=== PATIENT | female | born 1965 | race Caucasian/White ===

== ENCOUNTER 2018-11-24 20:49 | Emergency (ER) | payer BC ==
[2018-11-24] MEDS ORDERED: OMEGA 3-6-9 11200 MG PO (21:29)
[2018-11-24] MEDS ORDERED: VITAMIN D1000 IU PO (21:29)
[2018-11-24] MEDS ORDERED: B COMPLEX1 EACH PO (21:30)
[2018-11-24 21:58] VITALS: BP 145/88
== END 2018-11-24 21:58 | disposition home or self-care (01) ==
LOC: ED 20:49
DX: B34.9 Viral infection, unspecified (principal); J32.9 Chronic sinusitis, unspecified

== ENCOUNTER → 2018-11-28 | Outpatient (CLI) | payer BC ==
[2018-11-24 21:58] VITALS: BP 145/88
[~2018-11-28] MED LIST: B COMPLEX1 EACH PO; OMEGA 3-6-9 11200 MG PO; VITAMIN D1000 IU PO
== END ==
LOC: RAD 12:21
DX: J06.9 Acute upper respiratory infection, unspecified (principal); R05 Cough

== ENCOUNTER → 2019-06-04 | Outpatient (CLI) | payer BC | LOC: RAD 14:58 | DX: M19.072 Primary osteoarthritis, left ankle and foot (principal); M77.32 Calcaneal spur, left foot ==

== ENCOUNTER → 2019-06-15 | Outpatient (CLI) | payer BC ==
[2019-06-15 17:23] LABS: BASO # 0.1 (0.02-0.10); EOS # 0.1 (0.04-0.40); EOS % 1.4 % (1.0-5.0); HEMATOCRIT 44.7 % (37.0-47.0); HEMOGLOBIN 14.8 g/dL (12.5-16.0); LYMPH# 3.8 (1.50-4.00); MEAN CELL VOLUME 92 fl (78-100); MEAN CORPUSCULAR HEMOGLOBIN 30 pg (27-31); MEAN CORPUSCULAR HGB CONC 33 g/dL (33-37); MEAN PLATELET VOLUME 10.5 fl (7.4-10.4); MONO # 0.6 (0.20-0.80); NEU # 3.9 (1.40-6.50); PLATELET COUNT 241 K/mm3 (130-400); RED BLOOD COUNT 4.88 M/mm3 (4.10-5.30); RED CELL DISTRIBUTION WIDTH 13.4 % (11.5-14.5); WHITE BLOOD COUNT 8.5 K/mm3 (4.8-10.8)
[2019-06-15 17:32] LABS: ALBUMIN 4.1 g/dL (3.5-5.0)
[2019-06-15 17:33] LABS: CALCIUM 9.9 mg/dL (8.3-10.5)
[2019-06-15 17:34] LABS: TOTAL PROTEIN 7.5 g/dL (6.4-8.3)
[2019-06-15 17:36] LABS: TOTAL BILIRUBIN 0.4 mg/dL (0.2-1.2)
== END ==
LOC: LAB 17:09
PROVIDERS: Family Medicine
DX: Z00.00 Encounter for general adult medical examination without abnormal findings (principal); Z13.220 Encounter for screening for lipoid disorders

== ENCOUNTER → 2019-06-17 | Outpatient (CLI) | payer BC | LOC: RAD 07:44 | DX: S93.402A Sprain of unspecified ligament of left ankle, initial encounter (principal); M19.071 Primary osteoarthritis, right ankle and foot; M25.471 Effusion, right ankle ==

== ENCOUNTER → 2021-11-25 | Outpatient (CLI) | payer BC | LOC: LAB 16:36 | DX: Z20.822 Contact with and (suspected) exposure to COVID-19 (principal) ==

== ENCOUNTER → 2022-01-16 | Outpatient (CLI) | payer BC ==
[2022-01-16 17:29] LABS: BASO # 0.05 K/mm3 (0.02-0.10); EOS # 0.15 K/mm3 (0.04-0.40); EOS % 1.5 % (1.0-5.0); HEMATOCRIT 46.5 % (37.0-47.0); HEMOGLOBIN 15.2 g/dL (12.5-16.0); LYMPH# 3.97 K/mm3 (1.50-4.00); MEAN CELL VOLUME 93 fl (78-100); MEAN CORPUSCULAR HEMOGLOBIN 30 pg (27-31); MEAN CORPUSCULAR HGB CONC 33 g/dL (33-37); MEAN PLATELET VOLUME 10.3 fl (7.4-10.4); MONO # 0.69 K/mm3 (0.20-0.80); NEU # 5.13 K/mm3 (1.40-6.50); PLATELET COUNT 266 K/mm3 (130-400); RED BLOOD COUNT 5.02 M/mm3 (4.10-5.30)
[2022-01-16 17:41] LABS: ALBUMIN 4.3 g/dL (3.5-5.0); POTASSIUM 4.6 mmol/L (3.5-5.1)
[2022-01-16 17:44] LABS: TOTAL PROTEIN 7.7 g/dL (6.4-8.3)
[2022-01-16 17:45] LABS: TOTAL BILIRUBIN 0.4 mg/dL (0.2-1.2)
== END ==
LOC: LAB 17:14
PROVIDERS: Family Medicine
DX: Z00.00 Encounter for general adult medical examination without abnormal findings (principal); E78.5 Hyperlipidemia, unspecified; E66.01 Morbid (severe) obesity due to excess calories; G35 Multiple sclerosis; M19.90 Unspecified osteoarthritis, unspecified site; E53.9 Vitamin B deficiency, unspecified; E55.9 Vitamin D deficiency, unspecified

== ENCOUNTER → 2022-01-24 | Outpatient (CLI) | payer BC | LOC: MAMMO 15:15 | DX: Z12.31 Encounter for screening mammogram for malignant neoplasm of breast (principal); N64.9 Disorder of breast, unspecified ==

== ENCOUNTER → 2022-03-01 | Outpatient (CLI) | payer BC | LOC: LAB 14:58 | DX: L03.113 Cellulitis of right upper limb (principal) ==

== ENCOUNTER → 2022-04-17 | Outpatient (CLI) | payer BC ==
[2022-04-17 11:24] LABS: POTASSIUM 4.9 mmol/L (3.5-5.1)
[2022-04-17 11:26] LABS: CALCIUM 9.4 mg/dL (8.3-10.5)
[2022-04-17 11:27] LABS: TOTAL PROTEIN 7.2 g/dL (6.4-8.3)
[2022-04-17 11:29] LABS: TOTAL BILIRUBIN 0.6 mg/dL (0.2-1.2)
== END ==
LOC: LAB 11:01
PROVIDERS: Family Medicine
DX: R78.9 Finding of unspecified substance, not normally found in blood (principal)